=== PATIENT | female | born 1960 | race Caucasian/White ===

== ENCOUNTER 2016-07-23 21:08 | Emergency (ER) | payer BC ==
[2016-07-23 21:15] VITALS: BP 121/73; PULSE 75; RESP 16; TEMP 99.9
--- NOTE | 2016-07-23 21:53 | ED ---
General Adult HPI - General Chief complaint: Extremity Injury, Lower Stated complaint: Left Ankle Injury Time Seen by Provider: 07/23/16 21:45 Source: patient, RN notes reviewed Mode of arrival: wheelchair Limitations: no limitations - History of Present Illness Initial comments: This is a 54-year-old female who presents with left ankle pain after rolling it on uneven floor around 3 PM today. Patient states she was walking on it after this happened for about 2 hours but noticed increasing pain and swelling around 7 PM tonight. Patient denies any numbness/tingling or weakness. Patient is not on any blood thinners. Patient's past medical history significant for osteoporosis and takes Fosamax for this. Patient denies any recent fever, chills, shortness breath, chest pain, abdominal pain, nausea/vomiting/diarrhea, back pain, hematuria, headache, or visual changes, or any other complaints. - Related Data Home Medications Medication Instructions Recorded Confirmed Alendronate Sodium [Fosamax] 40 mg PO WEEKLY 07/23/16 07/23/16 Allergies Allergy/AdvReac Type Severity Reaction Status Date / Time No Known Allergies Allergy Verified 07/23/16 21:15 Review of Systems ROS Statement: Those systems with pertinent positive or pertinent negative responses have been documented in the HPI. ROS Other: All systems not noted in ROS Statement are negative. Past Medical History Additional Past Medical History / Comment(s): CHRONIC CONSTIPATION History of Any Multi-Drug Resistant Organisms: None Reported Past Surgical History: Hysterectomy, Tonsillectomy Additional Past Surgical History / Comment(s): BLADDER SUSP,LAP LUISA FUNDOPLASTY Past Anesthesia/Blood Transfusion Reactions: Motion Sickness Additional Past Anesthesia/Blood Transfusion Reaction / Comment(s): VERTIGO Past Psychological History: No Psychological Hx Reported Smoking Status: Never smoker Past Alcohol Use History: Occasional Past Drug Use History: None Reported - Past Family History Mother Additional Family Medical History / Comment(s): PLATELET DISORDER General Exam - General Exam Comments Initial Comments: General: The patient is awake and alert, in no distress, and does not appear acutely ill. Neck: The neck is supple, there is no tenderness or JVD. Cardiovascular: There is a regular rate and rhythm. No murmur, rub or gallop is appreciated. Respiratory: Lungs are clear to auscultation, respirations are non-labored, breath sounds are equal. No wheezes, stridor, rales, or rhonchi. Musculoskeletal: Patient has tenderness over the medial malleolus of the left ankle and to the anterior portion of the left foot. There is mild swelling to the lateral malleolus with localized swelling to this area. Limited range of motion due to pain, strength 5/5 and Sensation intact. Posterior tibial and dorsalis pedis pulses are 2+ bilaterally. Capillary refill is normal at less than 2 seconds. Neurological: A&O x 3. CN II-XII intact, There are no obvious motor or sensory deficits. Coordination appears grossly intact. Speech is normal. Skin: Skin is warm and dry and no rashes or lesions are noted. Psychiatric: Normal mood and affect. Limitations: no limitations Course Vital Signs 07/23/16 21:11 Temperature 99.9 F H Pulse Rate 75 Respiratory 16 Rate Blood Pressure 121/73 O2 Sat by Pulse 98 Oximetry Medical Decision Making - Medical Decision Making This is a 55-year-old female with left ankle pain. On physical exam Patient has tenderness over the medial malleolus of the left ankle and to the anterior portion of the left foot. There is mild swelling to the lateral malleolus with localized swelling to this area. Limited range of motion due to pain, strength 5/5 and Sensation intact. Posterior tibial and dorsalis pedis pulses are 2+ bilaterally. Capillary refill is normal at less than 2 seconds. X-rays of left foot and left ankle were done and reviewed showing: X-ray left ankle: Normal left ankle. X-ray left foot: Normal left foot. Reports read by Dr. Garber. Discussed results with patient. Discussed ankle sprains. I discussed rest, ice, elevate and use Giuseppe wrap for compression. Discussed crutches as needed. Discussed that patient will be given a prescription for an air cast to use while walking. Discussed [id number] Tylenol or Motrin as needed for any pain. Follow up with orthopedics if pain is not improved in 7 days. I discussed If symptoms do not improve in the next 7 days repeat x-rays may be needed to rule out occult fracture. Discussed return parameters.Discussed that patient should follow up with PCP in one to 2 days or return to the [facility] for any worsening symptoms or for any further concerns. Patient was receptive to this plan and patient will be discharged home. Disposition Clinical Impression: Left ankle sprain Disposition: HOME SELF-CARE Condition: Good Instructions: Ankle Sprain (ED) Additional Instructions: Please rest, ice, elevate and use Giuseppe wrap and Aircast for support. Please use crutches if needed for ambulation. Please perform range of motion exercises periodically throughout the day. Please [id number] Tylenol or Motrin as needed for any pain. If symptoms do not improve in the next 7 days repeat x- rays may be needed to rule out occult fracture. Please follow-up with orthopedics if pain is not improved after 7 days, otherwise follow-up with her primary care physician in one to 2 days or return to the [facility] for any worsening symptoms or for any further concerns. Referrals: Cale Otero MD [Primary Care Provider] - 1-2 days Ayo Urias DO [Doctor of Osteopathic Medicine] - 1-2 days Time of Disposition: 22:19
[2016-07-23] MEDS ORDERED: IBUPROFEN 400 MG TAB PO STA (22:09)
--- NOTE | 2016-07-23 22:13 | XR ---
EXAMINATION TYPE: XR foot complete LT DATE OF EXAM: 07/23/2016 10:01 PM COMPARISON: NONE HISTORY: Pain and injury TECHNIQUE: 3 views FINDINGS: Metatarsals appear intact. I see no fracture nor dislocation. Joint spaces are normal. IMPRESSION: Normal left foot
--- NOTE | 2016-07-23 22:14 | XR ---
EXAMINATION TYPE: XR ankle complete LT DATE OF EXAM: 07/23/2016 10:01 PM COMPARISON: NONE HISTORY: Pain TECHNIQUE: 3 views FINDINGS: Ankle mortise is anatomic. I see no fracture nor dislocation. Joint spaces are normal. IMPRESSION: Normal left ankle
== END 2016-07-23 22:20 | disposition home or self-care (01) ==
LOC: EC 21:08
DX: S93.402A Sprain of unspecified ligament of left ankle, initial encounter (principal); Z79.899 Other long term (current) drug therapy; X50.1XXA Overexertion from prolonged static or awkward postures, initial encounter
CPT/HCPCS: 99283; 73610; 73630; L4350

== ENCOUNTER → 2016-09-02 | Outpatient (CLI) | payer BC ==
--- NOTE | 2016-09-05 09:57 | MM ---
Reason for exam: screening (asymptomatic). Last mammogram was performed 1 year and 4 months ago. History: Patient is postmenopausal. Family history of breast cancer in sister at age 46. Took hormonal contraceptives for 4 years. Physical Findings: A clinical breast exam by your physician is recommended on an annual basis and results should be correlated with mammographic findings. MG 3D Screening Mammo W/Cad Bilateral CC and MLO view(s) were taken. Prior study comparison: May 15, 2015, bilateral MG 3d screening mammo w/cad. February 17, 2014, bilateral MG screening mammo w CAD. The breast tissue is heterogeneously dense. This may lower the sensitivity of mammography. There is no discrete abnormality. No significant changes when compared with prior studies. ASSESSMENT: Negative, BI-RAD 1 RECOMMENDATION: Routine screening mammogram of both breasts in 1 year.
== END ==
LOC: RADMAMWWP 15:09
PROVIDERS: ATTEND Obstetrics & Gynecology
DX: Z12.31 Encounter for screening mammogram for malignant neoplasm of breast (principal)
CPT/HCPCS: 77063; G0202

== ENCOUNTER → 2016-09-20 | Outpatient (CLI) | payer BC ==
--- NOTE | 2016-09-20 16:33 | CT ---
EXAMINATION TYPE: CT brain wo/w con DATE OF EXAM: 09/20/2016 4:26 PM COMPARISON: 04/20/2012 HISTORY: Pt states of vertigo and chronic sinusitis x [address] DLP: 1818.8 mGycm Contrast:injected with 100ml of omni 300 Unenhanced followed by contrast enhanced CT of the brain was performed. The ventricles, basal cisterns and sulci overlying the cerebral convexities demonstrate mild enlargem ent. There is no evidence for intracranial hemorrhage or sulcal effacement. There is decreased attenuation about the periventricular white matter and deep white matter of both c erebral hemispheres, compatible with chronic small vessel ischemia. Differential diagnosis does inclu de demyelination. No mass effects are seen.No midline shift. Osseous calvarium is intact. Following contrast administration no evidence for pathologic enhancement. If symptoms persist consider MRI. IMPRESSION: 1. Age related atrophic and chronic small vessel ischemic change without acute intracranial process s een at this time.
== END | disposition home or self-care (01) ==
LOC: RADCTMAIN 16:04
PROVIDERS: ATTEND Otolaryngology
DX: G31.1 Senile degeneration of brain, not elsewhere classified (principal); I67.82 Cerebral ischemia; J32.9 Chronic sinusitis, unspecified
CPT/HCPCS: 70470; Q9967

== ENCOUNTER → 2016-10-11 | Outpatient (CLI) | payer BC ==
--- NOTE | 2016-10-11 18:48 | MR ---
EXAMINATION TYPE: MR brain wo/w con DATE OF EXAM: 10/11/2016 6:35 PM COMPARISON: CT brain September 20, 2016 HISTORY: R/O MS Dizziness and white matter changes per order. TECHNIQUE: Multiplanar, multisequence images of the brain and brainstem is performed without and with IV contras t, utilizing 11 mL intravenous MultiHance gadolinium contrast is administered intravenously. Demyeli nating disease protocol with additional Sagittal Flair sequence performed. FINDINGS: T2 Lesions Present : None Approximate Number of Lesions: N/A Locations Identified : N/A Size of Reference Lesion(s): N/A Enhancing Lesion(s) Present: N/A Diffusion weighted images demonstrate no evidence of a recent infarct or other diffusion abnormality. There is no worrisome extra-axial fluid collection. The ventricular system and cisternal spaces ar e normal in size and appearance. The brain volume is age appropriate. Midline structures demonstrate normal morphology. The craniocervical junction appears within normal limits. Post contrast images demonstrate no abnormal enhancement. The dural venous sinuses appear pa tent. The visualized sinuses are clear and the globes are intact. No suspicious fluid signal mastoid air cells is present bilaterally. IMPRESSION: No significant white matter changes. Unremarkable study.
== END | disposition home or self-care (01) ==
LOC: RADMRIMAIN 17:37
PROVIDERS: ATTEND Otolaryngology
DX: R90.82 White matter disease, unspecified (principal); R42 Dizziness and giddiness; R51 Headache; R93.0 Abnormal findings on diagnostic imaging of skull and head, not elsewhere classified
CPT/HCPCS: 70553; A9577

== ENCOUNTER → 2018-02-01 | Outpatient (CLI) | payer BC ==
--- NOTE | 2018-02-01 11:59 | BD ---
EXAMINATION TYPE: Axial Bone Density DATE OF EXAM: 02/01/2018 COMPARISON: NONE CLINICAL HISTORY: Height: 5 FT 6 IN Weight: 135 FRAX RISK QUESTIONS: Family History (Parent hip fracture): YES RISK FACTORS HISTORY OF: Active: YES Postmenopausal woman: TOTAL HYST AGE 53 MEDICATIONS: Additional Medications: NONE Additional History: FX LT ELBOW SPRING 2017 EXAM MEASUREMENTS: Bone mineral densitometry was performed using the [employer] System. Bone mineral density as measured about the Lumbar spine is: ----- L1-L4(G/cm2): 0.857 T Score Values are as follows: ----- L2: -2.8 ----- L3: -2.5 ----- L4: -3.2 ----- L1-L4: -2.7 Bone mineral density has: INCREASED 4.6 % since study of: 2014 Bone mineral density about the R hip (g/cm2): 0.811 Bone mineral density about the L hip (g/cm2): 0.766 T Score values are as follows: -----R Neck: -1.6 -----L Neck: -2.0 -----R Total: -1.1 -----L Total: -1.1 Bone mineral density has: INCREASED 0.9 % since study of: 2014 IMPRESSION: Osteoporosis (T Score less than -2.5). There is increased fracture risk and therapy is usually indicated based on age. Re-Screen 1-2 years. NOTE: T-SCORE=SD OF THE YOUNG ADULT MEAN.
--- NOTE | 2018-02-05 10:32 | MM ---
Reason for exam: screening (asymptomatic). Last mammogram was performed 1 year and 5 months ago. History: Patient is postmenopausal. Family history of breast cancer in sister at age 46. Took hormonal contraceptives for 4 years. Physical Findings: A clinical breast exam by your physician is recommended on an annual basis and results should be correlated with mammographic findings. MG 3D Screening Mammo W/Cad Bilateral CC and MLO view(s) were taken. Prior study comparison: September 02, 2016, bilateral MG 3d screening mammo w/cad. May 15, 2015, bilateral MG 3d screening mammo w/cad. The breast tissue is heterogeneously dense. This may lower the sensitivity of mammography. There is no discrete abnormality. ASSESSMENT: Negative, BI-RAD 1 RECOMMENDATION: Routine screening mammogram of both breasts in 1 year.
== END | disposition home or self-care (01) ==
LOC: RADMAMWWP 08:21
PROVIDERS: ATTEND Family Medicine
DX: Z12.31 Encounter for screening mammogram for malignant neoplasm of breast (principal); M81.0 Age-related osteoporosis without current pathological fracture
CPT/HCPCS: 77063; 77067; 77080

== ENCOUNTER → 2019-04-17 | Outpatient (CLI) | payer BC ==
--- NOTE | 2019-04-19 09:38 | MM ---
Reason for exam: screening (asymptomatic). Last mammogram was performed 1 year and 2 months ago. History: Patient is postmenopausal. Family history of breast cancer in sister at age 46. Took hormonal contraceptives for 4 years. Physical Findings: A clinical breast exam by your physician is recommended on an annual basis and results should be correlated with mammographic findings. MG 3D Screening Mammo W/Cad Bilateral CC and MLO view(s) were taken. Prior study comparison: February 01, 2018, bilateral MG 3d screening mammo w/cad. September 02, 2016, bilateral MG 3d screening mammo w/cad. There are scattered fibroglandular densities. There is no discrete abnormality. ASSESSMENT: Negative, BI-RAD 1 RECOMMENDATION: Routine screening mammogram of both breasts in 1 year.
== END | disposition home or self-care (01) ==
LOC: RADMAMWWP 15:17
PROVIDERS: ATTEND Family Medicine
DX: Z12.31 Encounter for screening mammogram for malignant neoplasm of breast (principal); Z80.3 Family history of malignant neoplasm of breast
CPT/HCPCS: 77063; 77067

== ENCOUNTER 2019-05-21 07:49 | Observation (INO) | payer BC ==
--- NOTE | 2019-05-21 08:16 | ED ---
Chest Pain HPI - General Chief Complaint: Chest Pain Stated Complaint: chest pain Time Seen by Provider: 05/21/19 07:55 Source: patient Mode of arrival: wheelchair Limitations: no limitations - History of Present Illness Initial Comments: The patient is a 58 old female with past medical history of bradycardia who presents to the emergency room with reported chest pain. She states the pain started last night. It is located over the left side of her chest without radiation. Denies any jaw, left arm or back pain. Pain is intermittent. Described as a pressure sensation with intermittent sharp shooting pains. No associated shortness of breath. Denies nausea or vomiting. No diaphoresis. Denies ripping or tearing sensation to her back. She denies a cough or hemoptysis. No fevers or chills. Does admit to nasal congestion. Denies ear pain or sore throat. Admits to a family history of DVT/PE in her father and DVT in her cousins. Denies any calf pain or swelling. No pedal edema. No recent travel or prolonged immobility. No exogenous hormone use. She denies additional cardiac history to include coronary artery disease or cardiac in fections. No history of intravenous drug use. She did see Dr. Rodriguez approximately 5 years ago for bradycardia. She does not take any medications. States she had stress testing at that time which was negative. Upon arrival the patient is noted to be febrile. Denies possibility of any additional infections. No rashes. Denies any changes in her bowel or bladder habits. There are no other alleviating, precipitating or modifying factors - Related Data Home Medications Medication Instructions Recorded Confirmed Aspirin EC [Ecotrin] 325 mg PO DAILY PRN 05/21/19 05/21/19 Calcium Carbonate [Calcium] 600 mg PO DAILY 05/21/19 05/21/19 Allergies Allergy/AdvReac Type Severity Reaction Status Date / Time No Known Allergies Allergy Verified 05/21/19 09:58 Review of Systems ROS Statement: Those systems with pertinent positive or pertinent negative responses have been documented in the HPI. ROS Other: All systems not noted in ROS Statement are negative. EKG Findings - EKG Comments: EKG Findings:: EKG demonstrates a sinus bradycardia cardio with a ventricular rate of 59. CT interval 156. QRS 80. QTC 417. There are no acute ST segment elevations or depressions concerning for ischemic changes. Past Medical History Additional Past Medical History / Comment(s): CHRONIC CONSTIPATION History of Any Multi-Drug Resistant Organisms: None Reported Past Surgical History: Hysterectomy, Tonsillectomy Additional Past Surgical History / Comment(s): BLADDER SUSP,LAP LUISA FUNDOPLASTY Past Anesthesia/Blood Transfusion Reactions: Motion Sickness Additional Past Anesthesia/Blood Transfusion Reaction / Comment(s): VERTIGO Past Psychological History: No Psychological Hx Reported Smoking Status: Never smoker Past Alcohol Use History: None Reported, Occasional Past Drug Use History: None Reported - Past Family History Mother Additional Family Medical History / Comment(s): PLATELET DISORDER Father Family Medical History: Coronary Artery Disease (CAD), Myocardial Infarction ([place]), Pulmonary Embolus Additional Family Medical History / Comment(s): [place] in early 70s. General Exam Limitations: no limitations General appearance: alert, in no apparent distress Head exam: Present: atraumatic, normocephalic, normal inspection Eye exam: Present: normal appearance, PERRL, EOMI. Absent: scleral icterus, conjunctival injection, periorbital swelling ENT exam: Present: normal exam, mucous membranes moist Neck exam: Present: normal inspection. Absent: tenderness, meningismus, lymphadenopathy Respiratory exam: Present: normal lung sounds bilaterally. Absent: respiratory distress, wheezes, rales, rhonchi, stridor Cardiovascular Exam: Present: regular rate, normal rhythm, normal heart sounds. Absent: systolic murmur, diastolic murmur, rubs, gallop, clicks GI/Abdominal exam: Present: soft, normal bowel sounds. Absent: distended, tenderness, guarding, rebound, rigid Extremities exam: Present: normal inspection, full ROM, normal capillary refill. Absent: tenderness, pedal edema, joint swelling, calf tenderness Back exam: Present: normal inspection Neurological exam: Present: alert, oriented X3, CN II-XII intact Psychiatric exam: Present: normal affect, normal mood Skin exam: Present: warm, dry, intact, normal color. Absent: rash Course Vital Signs 05/21/19 05/21/19 05/21/19 07:58 08:26 09:00 Temperature 100.6 F H 99.5 F Pulse Rate 72 56 L Respiratory 18 16 Rate Blood Pressure 107/66 124/50 O2 Sat by Pulse 98 96 Oximetry 05/21/19 05/21/19 05/21/19 09:30 10:00 10:30 Temperature Pulse Rate 55 L 55 L 57 L Respiratory 18 18 18 Rate Blood Pressure 109/77 110/80 116/78 O2 Sat by Pulse 97 99 98 Oximetry 05/21/19 12:37 Temperature Pulse Rate 61 Respiratory 17 Rate Blood Pressure 107/65 O2 Sat by Pulse 97 Oximetry Chest Pain MDM - MDM Upon arrival the patient was placed into room 7. A thorough history and physical exam was performed. 12-lead EKG demonstrated no acute findings. CBC and CMP are unremarkable. Coags are normal. D-dimer is 0.3. Influenza A and B are negative. chest x-ray demonstrates no acute intrathoracic process. I did discuss the diagnosis, differential treatment options. The patients temperature was re-evaluated and was normal without intervention. I did recommend hospitalization to continue to trend the patient's troponins and have a cardio evaluation. I called and discussed the case with Dr. Srivastava who accepted admission. The patient is currently awaiting a bed on the floor Disposition Clinical Impression: Chest pain Disposition: ADMITTED IP TO THIS HOSP Condition: Stable Is patient prescribed a controlled substance at d/c from ED?: No Decision to Admit Reason: Admit from [facility] Decision Date: 05/21/19 Decision Time: 10:24
[2019-05-21 08:59] LABS: Basophils % (A) 1 %; Eosinophils # (A) 0.1 k/uL (0-0.7); Eosinophils % (A) 3 %; HCT 39.8 % (34.0-46.0); HGB 13.6 gm/dL (11.4-16.0); Lymphocytes # (A) 1.3 k/uL (1.0-4.8); Lymphocytes % (A) 32 %; MCH 32.3 pg (25.0-35.0); MCHC 34.1 g/dL (31.0-37.0); MCV 94.7 fL (80.0-100.0); Mean Platelet Volume 7.5; Monocytes # (A) 0.3 k/uL (0-1.0); Monocytes % (A) 7 %; Neutrophils # (A) 2.2 k/uL (1.3-7.7); Neutrophils % (A) 56 %; Platelet Count 272 k/uL (150-450); RDW 11.9 % (11.5-15.5)
--- NOTE | 2019-05-21 09:03 | XR ---
EXAMINATION TYPE: XR chest 2V DATE OF EXAM: 05/21/2019 COMPARISON: Prior chest x-ray 01/15/2012 HISTORY: Chest pain TECHNIQUE: Frontal and lateral views of the chest are obtained. FINDINGS: There is no focal air space opacity, pleural effusion, or pneumothorax seen. The cardiac silhouette size is within normal limits. The osseous structures are intact, there is a slight spina l curvature, and there are overlying cardiac leads. IMPRESSION: No acute cardiopulmonary process.
[2019-05-21 09:07] LABS: Albumin 4.1 g/dL (3.5-5.0); Calcium 9.8 mg/dL (8.4-10.2); Magnesium 1.9 mg/dL (1.6-2.3); Potassium 4.2 mmol/L (3.5-5.1); Total Bilirubin 0.7 mg/dL (0.2-1.3); Total Protein 6.9 g/dL (6.3-8.2)
[2019-05-21 09:10] LABS: D-Dimer 0.3 mg/L FEU (<0.60); INR 0.9 (<1.2); Partial Thromboplastin Time 25.4 sec (22.0-30.0); Prothrombin Time 10.1 sec (9.0-12.0)
[2019-05-21] MEDS ORDERED: NALOXONE 0.4 MG/ML 1 ML VIAL IV PRN (10:24)
[2019-05-21] MEDS ORDERED: NITROGLYCERIN OINT 1 INCH/GM PACKET TOPICAL STA (10:26)
[2019-05-21] MEDS: CALCIUM CARBONATE LIQUID 500 MG/5 ML CUP PO SCH (21:53)
[2019-05-22] MEDS: CALCIUM CARBONATE LIQUID 500 MG/5 ML CUP PO SCH (06:37)
[2019-05-22 07:58] VITALS: RESP 18
--- NOTE | 2019-05-22 10:14 | P.CRDCN ---
History of Present Illness History of present illness: HISTORY OF PRESENTING ILLNESS This is a pleasant 58-year-old female with no significant past medical history. She does not follow in the office with a curbing stonecutter for any reason. W e have been asked to see in consultation for chest pain. she states for the previous 3 weeks she has been having an intermittent sharp pain in the left precordial region. This discomfort is not exacerbated by activity or exertion. There is no radiation to the arm, back, neck or jaw. She has felt increasingly lightheaded recently and states it feels like her feet are going to give out. She also experiences significant amount of which she describes as "heartburn". She states she had a serina and fundoplication approximately [address] Tanner and her symptoms of acid reflux have been worse since having the procedure. She notices after eating an a very full sensation, a lot of belching and an intense burning in the chest. These pains are separate from the sharp pain described above. Last evening she had an episode after eating dinner that was lasting around 2-3 hours and was associated with nausea. She took Tums without relief. On admission she was noted to have a temperature of 100.6F. DIAGNOSTICS EKG reveals sinus mechanism with no acute ST or T wave abnormalities noted. Chest xray negative for an acute cardiopulmonary process. Laboratory reviewed, CBC unremarkable, d-dimer 0.3, sodium 139, potassium 4.2, creatinine 0.84, cardiac enzymes negative 3, magnesium 1.9, influenza A and B-. she takes no daily cardiac medications. REVIEW OF SYSTEMS At the time of my exam: CONSTITUTIONAL: Denies fever or chills. CARDIOVASCULAR: Denies chest pain, shortness of breath, orthopnea, PND or palpitations. RESPIRATORY: Denies cough. GASTROINTESTINAL: Denies abdominal pain, diarrhea, constipation, nausea or vomiting. MUSCULOSKELETAL: Denies myalgias. NEUROLOGIC: Denies numbness, tingling or weakness. ENDOCRINE: Denies fatigue, weight change, polydipsia or polyurina. GENITOURINARY: Denies burning, hematuria or urgency with micturation. HEMATOLOGIC: Denies history of anemia or bleeding. PHYSICAL EXAMINATION Blood pressure 85/53 heart rate 61 afebrile and maintaining oxygen saturation on room air. CONSTITUTIONAL: No apparent distress. HEENT: Head is normocephalic. Pupils are equal, round. Sclerae anicteric. Mucous membranes of the mouth are moist. No JVD. No carotid bruit. CHEST EXAMINATION: Lungs are clear to auscultation. No chest wall tenderness is noted on palpation or with deep breathing. HEART EXAMINATION: Regular rate and rhythm. S1, S2 heard. No murmurs, gallops or rub. ABDOMEN: Soft, nontender. Positive bowel sounds. EXTREMITIES: 2+ peripheral pulses, no lower extremity edema and no calf tenderness. NEUROLOGIC EXAMINATION: Patient is awake, alert and oriented x3. ASSESSMENT Chest pain, atypical for angina. An acute coronary event has been ruled out. Epigastric pain after eating with associated nausea Febrile illness History of hiatal hernia s/p serina fundoplication PLAN An acute coronary event has been ruled out. Symptoms are atypical for angina and clinically seem related to underlying GI etiology. Obtain 2D echocardiogram and doppler study to assess cardiac structure and function. Obtain ultrasound of the gallbladder. Suggest GI evaluation by either Dr. Tanner or gastroenterology. Given the fever of unknown origin, we will not purse stress testing at this time. Thank you kindly for this consultation. Nurse Practitioner note has been reviewed, I agree with a documented findings and plan of care. Patient was seen and examined. Past Medical History Additional Past Medical History / Comment(s): CHRONIC CONSTIPATION History of Any Multi-Drug Resistant Organisms: None Reported Past Surgical History: Hysterectomy, Tonsillectomy Additional Past Surgical History / Comment(s): BLADDER SUSP,LAP LUISA FUNDOPLASTY Past Anesthesia/Blood Transfusion Reactions: Motion Sickness Additional Past Anesthesia/Blood Transfusion Reaction / Comment(s): VERTIGO Past Psychological History: No Psychological Hx Reported Smoking Status: Never smoker Past Alcohol Use History: None Reported, Occasional Past Drug Use History: None Reported - Past Family History Father Family Medical History: Coronary Artery Disease (CAD), Myocardial Infarction ([place]), Pulmonary Embolus Additional Family Medical History / Comment(s): [place] in early 70s. Mother Family Medical History: Blood Disorder Additional Family Medical History / Comment(s): PLATELET DISORDER Medications and Allergies Home Medications Medication Instructions Recorded Confirmed Type Aspirin EC [Ecotrin] 325 mg PO DAILY PRN 05/21/19 05/21/19 History Calcium Carbonate [Calcium] 600 mg PO DAILY 05/21/19 05/21/19 History Allergies Allergy/AdvReac Type Severity Reaction Status Date / Time No Known Allergies Allergy Verified 05/21/19 09:58 Physical Exam Vitals: Vital Signs Temp Pulse Pulse Resp BP BP Pulse Ox 05/22/19 04:00 98.2 F 53 L 16 107/68 98 05/22/19 03:58 70 15 05/22/19 00:00 98.0 F 70 16 101/57 97 05/21/19 23:25 68 18 05/21/19 19:40 98.3 F 68 18 125/62 95 05/21/19 19:38 61 17 05/21/19 15:41 98.7 F 61 17 103/65 99 05/21/19 12:37 61 17 107/65 97 05/21/19 10:30 57 L 18 116/78 98 05/21/19 10:00 55 L 18 110/80 99 05/21/19 09:30 55 L 18 109/77 97 05/21/19 09:00 56 L 16 124/50 96 05/21/19 08:26 99.5 F 05/21/19 07:58 100.6 F H 72 18 107/66 98 Intake and Output 05/21/19 05/22/19 05/22/19 22:59 06:59 14:59 Intake Total 0 Balance 0 Intake: Oral 0 Other: Voiding Method Toilet Toilet # Voids 1 Results 05/21/19 08:30 05/21/19 08:30 Cardiac Enzymes 05/21/19 05/21/19 05/21/19 Range/Units 08:30 08:30 14:49 AST 24 (14-36) U/L Troponin I <0.012 <0.012 (0.000-0.034) ng/mL 05/21/19 Range/Units 20:28 AST (14-36) U/L Troponin I <0.012 (0.000-0.034) ng/mL Coagulation 05/21/19 Range/Units 08:30 PT 10.1 (9.0-12.0) sec APTT 25.4 (22.0-30.0) sec CBC 05/21/19 Range/Units 08:30 WBC 4.0 (3.8-10.6) k/uL RBC 4.20 (3.80-5.40) m/uL Hgb 13.6 (11.4-16.0) gm/dL Hct 39.8 (34.0-46.0) % Plt Count 272 (150-450) k/uL Comprehensive Metabolic Panel 05/21/19 Range/Units 08:30 Sodium 139 (137-145) mmol/L Potassium 4.2 (3.5-5.1) mmol/L Chloride 107 (98-107) mmol/L Carbon Dioxide 24 (22-30) mmol/L BUN 12 (7-17) mg/dL Creatinine 0.84 (0.52-1.04) mg/dL Glucose 86 (74-99) mg/dL Calcium 9.8 (8.4-10.2) mg/dL AST 24 (14-36) U/L ALT 24 (9-52) U/L Alkaline Phosphatase 68 (38-126) U/L Total Protein 6.9 (6.3-8.2) g/dL Albumin 4.1 (3.5-5.0) g/dL Current Medications Generic Name Dose Route Start Last Admin Trade Name Freq PRN Reason Stop Dose Admin Naloxone HCl 0.2 mg 05/21/19 10:24 Narcan IV Q2M PRN Opioid Reversal Intake and Output 05/21/19 05/22/19 05/22/19 22:59 06:59 14:59 Intake Total 0 Balance 0 Intake: Oral 0 Other: Voiding Method Toilet Toilet # Voids 1 05/21/19 08:30 05/21/19 08:30
[2019-05-22 11:29] VITALS: BP 96/61; PULSE 57; TEMP 98.1
--- NOTE | 2019-05-22 11:32 | US ---
EXAMINATION TYPE: US gallbladder DATE OF EXAM: 05/22/2019 COMPARISON: NONE CLINICAL HISTORY: pain after eating, nausea. EXAM MEASUREMENTS: Liver Length: 14.2 cm Gallbladder Wall: 0.2 cm CBD: 0.2 cm Right Kidney: 9.4 x 3.8 x 4.4 cm Pancreas: wnl as visualized Liver: wnl Gallbladder: wnl Evidence for sonographic Myers's sign: No CBD: wnl Right Kidney: No hydronephrosis or masses seen IMPRESSION: No sonographic evidence of cholelithiasis nor acute cholecystitis. Unremarkable ultrasoun d.
--- NOTE | 2019-05-22 16:09 | ECHOF ---
Referral Reason:cp MEASUREMENTS -------- HEIGHT: 167.6 cm WEIGHT: 59.0 kg BP: RVIDd: 2.8 cm (< 3.3) IVSd: 1.0 cm (0.6 - 1.1) LVIDd: 2.7 cm (3.9 - 5.3) LVPWd: 1.2 cm (0.6 - 1.1) IVSs: 1.4 cm LVIDs: 1.9 cm LVPWs: 1.2 cm LAESV Index (A-L): 17.50 ml/m Ao Diam: 2.5 cm (2.0 - 3.7) AV Cusp: 2.0 cm (1.5 - 2.6) LA Diam: 2.5 cm (2.7 - 3.8) MV EXCURSION: 12.126 mm (> 18.000) MV EF SLOPE: 80 mm/s (70 - 150) EPSS: 0.4 cm MV E Tonio: 0.85 m/s MV DecT: 248 ms MV A Tonio: 0.64 m/s MV E/A Ratio: 1.32 RAP: 5.00 mmHg RVSP: 16.89 mmHg TAPSE: 25.70 mm FINDINGS -------- Resting bradycardia (HR<60bpm). This was a technically good study. The left ventricular size is normal. There is mild concentric left ventricular hypertrophy. Overa ll left ventricular systolic function is normal with, an EF between 55 - 60 %. The diastolic fillin g pattern is normal for the age of the patient 9.22. The right ventricle is normal in size. The right ventricular systolic function is normal. The left atrial size is normal. Normal LA size by volume 22+/-6 ml/m2. The right atrial size is normal. Interatrial and interventricular septum intact. Aortic valve is trileaflet and is mildly thickened. The mitral valve is normal. There is trace mitral regurgitation. The tricuspid valve appears structurally normal. Trace tricuspid regurgitation present. Right robinson tricular systolic pressure is normal at < 35 mmHg. There is no pulmonic regurgitation present. The aortic root size is normal. Normal inferior vena cava with normal inspiratory collapse consistent with estimated right atrial pre ssure of 5 mmHg. There is no pericardial effusion. CONCLUSIONS -------- 1. Resting bradycardia (HR<60bpm). 2. This was a technically good study. 3. The left ventricular size is normal. 4. There is mild concentric left ventricular hypertrophy. 5. Overall left ventricular systolic function is normal with, an EF between 55 - 60 %. 6. The diastolic filling pattern is normal for the age of the patient 9.22 7. The right ventricle is normal in size. 8. The right ventricular systolic function is normal. 9. The left atrial size is normal. 10. Normal LA size by volume 22+/-6 ml/m2. 11. The right atrial size is normal. 12. Interatrial and interventricular septum intact. 13. Aortic valve is trileaflet and is mildly thickened. 14. The mitral valve is normal. 15. There is trace mitral regurgitation. 16. The tricuspid valve appears structurally normal. 17. Trace tricuspid regurgitation present. 18. Right ventricular systolic pressure is normal at < 35 mmHg. 19. There is no pulmonic regurgitation present. 20. The aortic root size is normal. 21. Normal inferior vena cava with normal inspiratory collapse consistent with estimated right atrial pressure of 5 mmHg. 22. There is no pericardial effusion. VP SITE: Emmy Torres, [facility]
--- NOTE | 2019-05-26 23:23 | P.HPIM ---
History of Present Illness H&P Date: 05/22/19 Chief Complaint: Chest pain History of presenting complaint: This is a 58-year-old patient of Dr. Otero. Patient normally otherwise in good health. For about a couple of weeks patient has noticed that she's been having some sharp chest pain sometimes a burning sensation sometimes fullness in the epigastric. Patient's had previously Shanae fundoplasty done by Dr. Claudia raygoza. The reflux symptoms are still being present. Pain does not radiate to the neck or on. Not related to activity. No dizziness no lightheadedness. Patient also has a slight cough with questionable postnasal drip. Otherwise pretty active. Denies any cardiac history. Review of systems: GEN.: None EYES: None HEENT: None NECK: None RESPIRATORY: None CARDIOVASCULAR: As above GASTROINTESTINAL: As above GENITOURINARY: None MUSCULOSKELETAL: None LYMPHATICS: None HEMATOLOGICAL: None PSYCHIATRY: None NEUROLOGICAL: None Social history: Lives with her . Does not smoke drink alcohol. Physical examination: VITAL SIGNS: 100.6, 72, 18, 107/66, 98% room air GENERAL: 21, sitting up, comfortable. EYES: Pupils equal. Conjunctiva normal. HEENT: External appearance of nose and ears normal, oral cavity grossly normal. NECK: JVD not raised; masses not palpable. HEART: First and second heart sounds are normal; no edema. LUNGS: Respiratory rate normal; clear to auscultation. ABDOMEN: Soft, nontender, liver spleen not palpable, no masses palpable. PSYCH: Alert and oriented x3; mood and affect normal. NEUROLOGICAL: Cranial nerves grossly intact; no facial asymmetry, power and sensation grossly intact. LYMPHATICS: No lymph nodes palpable in the axilla and neck INVESTIGATIONS, reviewed in the clinical context: White count 4 hemoglobin 13.6 progression 4.2 creatinine 0.84 Troponin I 3 negative Influenza A and B both negative EKG tracing personally reviewed by me-normal sinus rhythm Chest x-ray film personally reviewed by me-lung hall clear Assessment: -This is a patient who presented with sharp pain with 1 episode a low-grade fever slight cough could be pleurisy likely viral. -GERD symptoms and patient is had a previous Shanae fundoplasty Plan: Cardiology was consulted. Serial cardiac enzymes were negative. Gallbladder ultrasound and 2-D echo was ordered by cardiology. Past Medical History Additional Past Medical History / Comment(s): CHRONIC CONSTIPATION History of Any Multi-Drug Resistant Organisms: None Reported Past Surgical History: Hysterectomy, Tonsillectomy Additional Past Surgical History / Comment(s): BLADDER SUSP,LAP LUISA FUNDOPLASTY Past Anesthesia/Blood Transfusion Reactions: Motion Sickness Additional Past Anesthesia/Blood Transfusion Reaction / Comment(s): VERTIGO Past Psychological History: No Psychological Hx Reported Smoking Status: Never smoker Past Alcohol Use History: None Reported, Occasional Past Drug Use History: None Reported - Past Family History Father Family Medical History: Coronary Artery Disease (CAD), Myocardial Infarction ([place]), Pulmonary Embolus Additional Family Medical History / Comment(s): [place] in early 70s. Mother Family Medical History: Blood Disorder Additional Family Medical History / Comment(s): PLATELET DISORDER Medications and Allergies Home Medications Medication Instructions Recorded Confirmed Type Aspirin EC [Ecotrin] 325 mg PO DAILY PRN 05/21/19 05/21/19 History Calcium Carbonate [Calcium] 600 mg PO DAILY 05/21/19 05/21/19 History Allergies Allergy/AdvReac Type Severity Reaction Status Date / Time No Known Allergies Allergy Verified 05/21/19 09:58 Physical Exam Vitals: Vital Signs Temp Pulse Pulse Resp BP BP Pulse Ox 05/22/19 07:57 98.6 F 61 18 85/53 98 05/22/19 04:00 98.2 F 53 L 16 107/68 98 05/22/19 03:58 70 15 05/22/19 00:00 98.0 F 70 16 101/57 97 05/21/19 23:25 68 18 05/21/19 19:40 98.3 F 68 18 125/62 95 05/21/19 19:38 61 17 05/21/19 15:41 98.7 F 61 17 103/65 99 05/21/19 12:37 61 17 107/65 97 05/21/19 10:30 57 L 18 116/78 98 05/21/19 10:00 55 L 18 110/80 99 Intake and Output 05/21/19 05/22/19 05/22/19 22:59 06:59 14:59 Intake Total 0 Balance 0 Intake: Oral 0 Other: Voiding Method Toilet Toilet Toilet # Voids 1 Results CBC & Chem 7: 05/21/19 08:30 05/21/19 08:30 Thrombosis Risk Factor Assmnt - Choose All That Apply Any of the Below Risk Factors Present?: Yes Each Factor Represents 1 point: Age 41-60 years Other Risk Factors: Yes Each Risk Factor Represents 3 Points: Family history of DVT/PE Other congenital or acquired thrombophilia - If yes, enter type in comment: No Thrombosis Risk Factor Assessment Total Risk Factor Score: 4 Thrombosis Risk Factor Assessment Level: Moderate Risk
--- NOTE | 2019-05-26 23:26 | P.DS ---
Providers Date of admission: 05/21/19 10:24 Expected date of discharge: 05/22/19 Attending physician: Wei Srivastava Consults: 05/21/19 10:25 Consult Physician Urgent Consulting Provider: [facility] Consult Reason/Comments: acute chest pain possible acs Do you want consulting provider notified?: Yes Primary care physician: Piero Otero [facility] Course: Chief Complaint: Chest pain Hospital course: This is a 58-year-old patient of Dr. Otero. Patient normally otherwise in good health. For about a couple of weeks patient has noticed that she's been having some sharp chest pain sometimes a burning sensation sometimes fullness in the epigastric. Patient's had previously Shanae fundoplasty done by Dr. Moya. The reflux symptoms are still being present. Pain does not radiate to the neck or on. Not related to activity. No dizziness no lightheadedness. Patient also has a slight cough with questionable postnasal drip. Otherwise pretty active. Denies any cardiac history. Patient EKG was unremarkable. Troponins were negative. Patient should follow Dr. Moya and may require antacids. Gallbladder ultrasound and 2-D echo both unremarkable. Consultation: [facility] Physical examination: VITAL SIGNS: 99.5, 55, 18, 110/80, 99% room air GENERAL: 21, sitting up, comfortable. EYES: Pupils equal. Conjunctiva normal. HEENT: External appearance of nose and ears normal, oral cavity grossly normal. NECK: JVD not raised; masses not palpable. HEART: First and second heart sounds are normal; no edema. LUNGS: Respiratory rate normal; clear to auscultation. ABDOMEN: Soft, nontender, liver spleen not palpable, no masses palpable. PSYCH: Alert and oriented x3; mood and affect normal. INVESTIGATIONS, reviewed in the clinical context: White count 4 hemoglobin 13.6 progression 4.2 creatinine 0.84 Troponin I 3 negative Influenza A and B both negative EKG tracing personally reviewed by me-normal sinus rhythm Chest x-ray film personally reviewed by me-lung hall clear Gallbladder ultrasound-negative 2-D echocardiogram unremarkable showed preserved LV function Assessment: - pleurisy likely viral. -GERD symptoms and patient is had a previous Shanae fundoplasty Disposition: Home Patient Condition at Discharge: Stable Plan - Discharge Summary Discharge Rx Participant: No New Discharge Prescriptions: Continue Calcium Carbonate [Calcium] 600 mg PO DAILY Aspirin EC [Ecotrin] 325 mg PO DAILY PRN PRN Reason: Pain Discharge Medication List Aspirin EC [Ecotrin] 325 mg PO DAILY PRN 05/21/19 [History] Calcium Carbonate [Calcium] 600 mg PO DAILY 05/21/19 [History] Follow up Appointment(s)/Referral(s): Cale Otero MD [Primary Care Provider] - 1 Week Juan A Last MD [STAFF PHYSICIAN] - 05/28/19 1:45 pm
== END 2019-05-22 15:33 ==
LOC: EC 07:49 → 1SOBS 10:24
PROVIDERS: ADMIT Hospitalist; ATTEND Hospitalist
DX: R09.1 Pleurisy (principal); R07.2 Precordial pain; R50.9 Fever, unspecified; R05 Cough; K21.9 Gastro-esophageal reflux disease without esophagitis; Z83.2 Family history of diseases of the blood and blood-forming organs and certain disorders involving the immune mechanism; Z79.82 Long term (current) use of aspirin; Z82.49 Family history of ischemic heart disease and other diseases of the circulatory system; Z90.710 Acquired absence of both cervix and uterus
CPT/HCPCS: 93005 ×2; 99285; 36415; 93306; 85379; 80053; 83605; 83690; 83735; 84484; 85025; 85610; 85730; 87502; 71046; 76705; G0378 ×2

== ENCOUNTER 2019-09-21 20:02 | Emergency (ER) | payer BC ==
[2019-09-21 20:07] VITALS: BP 126/68; PULSE 78; RESP 20; TEMP 98.6
--- NOTE | 2019-09-21 20:21 | ED ---
General Adult HPI - General Chief complaint: Extremity Injury, Lower Stated complaint: Possible broken foot Time Seen by Provider: 09/21/19 20:05 Source: patient, RN notes reviewed, old records reviewed Mode of arrival: ambulatory Limitations: no limitations - History of Present Illness Initial comments: This a 58-year-old female who presents emergency Department complaining of right foot and ankle pain. Patient states she was moving her son out of college and she twisted her foot in the process and his had significant pain and swelling since. Patient denies any proximal leg pain. Patient denies any other injury. Patient is finding it hard to weight-bear at this time. - Related Data Home Medications Medication Instructions Recorded Confirmed Aspirin EC [Ecotrin] 325 mg PO DAILY PRN 05/21/19 05/21/19 Calcium Carbonate [Calcium] 600 mg PO DAILY 05/21/19 05/21/19 Allergies Allergy/AdvReac Type Severity Reaction Status Date / Time No Known Allergies Allergy Verified 09/21/19 20:07 Review of Systems ROS Statement: Those systems with pertinent positive or pertinent negative responses have been documented in the HPI. ROS Other: All systems not noted in ROS Statement are negative. Past Medical History Additional Past Medical History / Comment(s): CHRONIC CONSTIPATION History of Any Multi-Drug Resistant Organisms: None Reported Past Surgical History: Hysterectomy, Tonsillectomy Additional Past Surgical History / Comment(s): BLADDER SUSP,LAP LUISA FUNDOPLASTY Past Anesthesia/Blood Transfusion Reactions: Motion Sickness Additional Past Anesthesia/Blood Transfusion Reaction / Comment(s): VERTIGO Past Psychological History: No Psychological Hx Reported Smoking Status: Never smoker Past Alcohol Use History: None Reported, Occasional Past Drug Use History: None Reported - Past Family History Father Family Medical History: Coronary Artery Disease (CAD), Myocardial Infarction ([place]), Pulmonary Embolus Additional Family Medical History / Comment(s): [place] in early 70s. Mother Additional Family Medical History / Comment(s): PLATELET DISORDER General Exam - General Exam Comments Initial Comments: GENERAL Patient is well-developed and well-nourished. Patient is in mild distress. EYES Patient's pupils are equal and round. Extraocular motion is intact SKIN Unremarkable NEURO The patient is alert and oriented 3 PYSCH Patient has normal interpersonal interactions. MUSCULOSKELETAL Ankle swollen both laterally and medially. Patient's foot is also swollen. Midfoot is tender to palpation as is the lateral and medial malleolus. Limitations: no limitations Course Vital Signs 09/21/19 20:03 Temperature 98.6 F Pulse Rate 78 Respiratory 20 Rate Blood Pressure 126/68 O2 Sat by Pulse 98 Oximetry Procedures - Orthopedic Splinting/Casting Injury #1 Side: right Lower Extremity Immobilizer: posterior splint Medical Decision Making - Medical Decision Making X-rays of the ankle show no acute abnormality. X-rays of the foot showing possible chip fracture of the anterior talus. I put a splint on the patient I told her to be nonweightbearing and to follow-up with orthopedic. Disposition Clinical Impression: Ankle sprain, Talus fracture Disposition: HOME SELF-CARE Instructions (If sedation given, give patient instructions): Ankle Sprain (ED), Talar Fracture in Adults (ED) Is patient prescribed a controlled substance at d/c from ED?: No Referrals: Cale Otero MD [Primary Care Provider] - 1-2 days Time of Disposition: 20:51
--- NOTE | 2019-09-21 20:37 | XR ---
EXAMINATION TYPE: XR foot complete RT, XR ankle complete RT DATE OF EXAM: 09/21/2019 CLINICAL HISTORY: pain TECHNIQUE: Frontal, lateral and oblique images of the left foot and ankle are obtained. COMPARISON: None. FINDINGS: There is moderate soft tissue swelling seen greatest laterally. There is a tiny irregular o ssific density noted adjacent to the talus which may reflect a small avulsion fracture. Ankle mortise is intact. Osseous structures of the right foot are intact. IMPRESSION: There is a tiny irregular ossific density noted adjacent to the talus which may reflect a small avuls ion fracture.
== END 2019-09-21 20:55 | disposition home or self-care (01) ==
LOC: EC 20:02
DX: S92.151A Displaced avulsion fracture (chip fracture) of right talus, initial encounter for closed fracture (principal)
CPT/HCPCS: 29515; 99284

== ENCOUNTER 2019-09-23 16:51 | Emergency (ER) | payer BC ==
[2019-09-23 17:07] VITALS: BP 129/84; PULSE 75; RESP 18; TEMP 98.2
--- NOTE | 2019-09-23 18:29 | US ---
EXAMINATION TYPE: US venous doppler duplex LE RT DATE OF EXAM: 09/23/2019 6:21 PM COMPARISON: NONE CLINICAL HISTORY: swelling, recent ankle fx. Broke right ankle 09/20/2019. Swelling right lower leg. N o hx of DVT. Patient does not take blood thinners. SIDE PERFORMED: Right TECHNIQUE: The lower extremity deep venous system is examined utilizing real time linear array sonog josesito with graded compression, doppler sonography and color-flow sonography. VESSELS IMAGED: External Iliac Vein (EIV) Common Femoral Vein Deep Femoral Vein Greater Saphenous Vein * Femoral Vein Popliteal Vein Small Saphenous Vein * Proximal Calf Veins (* superficial vessels) Right Leg: No evidence of DVT in veins imaged at this time from prox calf veins to EIV. IMPRESSION: 1. No diagnostic evidence of DVT as visualized.
--- NOTE | 2019-09-23 19:08 | ED ---
Lower Extremity Injury HPI - General Chief Complaint: Extremity Injury, Lower Stated Complaint: Rt Ankle injury/blood clot Source: patient Mode of arrival: ambulatory Limitations: no limitations - History of Present Illness Initial Comments: The patient is a 58-year-old female presents to the emergency room with reported right calf swelling. States that she was in the emergency department on Monday was diagnosed with a right ankle fracture. She was placed in a posterior splint has been using crutches. States she's been propping her leg up as much as possible. States that she noted she had calf pain today. Also noted to have some ecchymosis located over the lateral aspect. Does admit to pain with palpation of the site. Denies a history of DVT or PE. This be to her primary care physician who was concerned about the swelling and referred her to the ER for an ultrasound. She denies any new trauma. No worsening ankle swelling. No knee pain. No chest pain or shortness of breath. There are no alleviating, Perceptin or modifying factors - Related Data Home Medications Medication Instructions Recorded Confirmed RX: Aspirin EC [Ecotrin] 325 mg PO DAILY PRN 05/21/19 05/21/19 RX: Calcium Carbonate [Calcium] 600 mg PO DAILY 05/21/19 05/21/19 Allergies Allergy/AdvReac Type Severity Reaction Status Date / Time No Known Allergies Allergy Verified 09/21/19 20:07 Review of Systems ROS Statement: Those systems with pertinent positive or pertinent negative responses have been documented in the HPI. ROS Other: All systems not noted in ROS Statement are negative. Past Medical History Additional Past Medical History / Comment(s): CHRONIC CONSTIPATION History of Any Multi-Drug Resistant Organisms: None Reported Past Surgical History: Hysterectomy, Tonsillectomy Additional Past Surgical History / Comment(s): BLADDER SUSP,LAP LUISA FUNDOPLASTY Past Anesthesia/Blood Transfusion Reactions: Motion Sickness Additional Past Anesthesia/Blood Transfusion Reaction / Comment(s): VERTIGO Past Psychological History: No Psychological Hx Reported Smoking Status: Never smoker Past Alcohol Use History: None Reported, Occasional Past Drug Use History: None Reported - Past Family History Father Family Medical History: Coronary Artery Disease (CAD), Myocardial Infarction ([place]), Pulmonary Embolus Additional Family Medical History / Comment(s): [place] in early 70s. Mother Additional Family Medical History / Comment(s): PLATELET DISORDER General Exam Limitations: no limitations Course Vital Signs 09/23/19 17:04 Temperature 98.2 F Pulse Rate 75 Respiratory 18 Rate Blood Pressure 129/84 O2 Sat by Pulse 97 Oximetry Medical Decision Making - Medical Decision Making Upon arrival the patient is placed into room 11. A thorough history and physical exam is performed. An ultrasound is performed patient's right lower extremity to evaluate for DVT. Ultrasound is negative. Discuss the diagnosis, differential and treatment options with the patient. The patient has taken the splint off on her own and therefore I do resplinted the patient's. She is instructed not to intubate on it. She does have an appointment with the [facility] on Monday. He should return to the emergency room for any new or worsening symptoms. Patient was in agreement treatment plan she is discharged home in stable condition. Disposition Clinical Impression: Calf swelling, Ankle sprain, Talus fracture Disposition: HOME SELF-CARE Condition: Stable Instructions (If sedation given, give patient instructions): Ankle Fracture (ED) Additional Instructions: Please follow up with the orthopedic doctor on Monday at your scheduled appointment. Return to the emergency room for new or worse symptoms Is patient prescribed a controlled substance at d/c from ED?: No Referrals: Cale Otero MD [Primary Care Provider] - 1-2 days Sandor Sanchez MD [Medical Doctor] - 1-2 days Time of Disposition: 19:08
== END 2019-09-23 19:17 | disposition home or self-care (01) ==
LOC: EC 16:51
DX: S92.101A Unspecified fracture of right talus, initial encounter for closed fracture (principal); X58.XXXA Exposure to other specified factors, initial encounter
CPT/HCPCS: 29515; 99283

== ENCOUNTER → 2020-09-23 | Outpatient (CLI) | payer BC ==
--- NOTE | 2020-09-24 13:39 | MM ---
Reason for exam: screening (asymptomatic). Last mammogram was performed 1 year and 5 months ago. History: Patient is postmenopausal. Family history of breast cancer in sister at age 46. Took hormonal contraceptives for 4 years. Physical Findings: A clinical breast exam by your physician is recommended on an annual basis and results should be correlated with mammographic findings. MG 3D Screening Mammo W/Cad Bilateral CC and MLO view(s) were taken. Prior study comparison: April 17, 2019, bilateral MG 3d screening mammo w/cad. February 01, 2018, bilateral MG 3d screening mammo w/cad. The breast tissue is heterogeneously dense. This may lower the sensitivity of mammography. No significant changes when compared with prior studies. ASSESSMENT: Benign, BI-RAD 2 RECOMMENDATION: Routine screening mammogram of both breasts in 1 year.
== END | disposition home or self-care (01) ==
LOC: RADMAMWWP 15:03
PROVIDERS: ATTEND Family Medicine
DX: Z12.31 Encounter for screening mammogram for malignant neoplasm of breast (principal); Z80.3 Family history of malignant neoplasm of breast; Z78.0 Asymptomatic menopausal state
CPT/HCPCS: 77063; 77067

== ENCOUNTER → 2021-12-02 | Outpatient (CLI) | payer BC ==
--- NOTE | 2021-12-06 12:08 | MM ---
Reason for Exam: Screening (asymptomatic). Last mammogram was performed 1 year(s) and 2 month(s) ago. Patient History: Menarche at age 14. First Full-Term at age 27. Left ovary removed at age 53. Right ovary removed at age 53. Hysterectomy at age 53. Postmenopausal. Patient has history of breast feeding. Estrogen, starting at age 57. Patient used Hormonal Contraceptives for 4 years. Sister had breast cancer, left, age 46. Risk Values: Urmila 5 year model risk: 2.6%. NCI Lifetime model risk: 14.6%. Prior Study Comparison: 02/01/2018 Bilateral Screening Mammogram, [facility]. 04/17/2019 Bilateral Screening Mammogram, [facility]. 09/23/2020 Bilateral Screening Mammogram, [facility]. Tissue Density: The breast tissue is heterogeneously dense. This may lower the sensitivity of mammography. Findings: Analyzed By CAD. Pattern appears stable. Focal asymmetries in the upper outer aspect right breast, present previously No suspicious groups of microcalcifications, spiculated or lobular masses, architectural distortion or other secondary signs of malignancy are mammographically apparent. Overall Assessment: Benign, BI-RAD 2 Management: Screening Mammogram of both breasts in 1 year. A negative mammogram report should not preclude additional follow up of suspicious palpable abnormalities. Patient should continue monthly self breast exam. A clinical breast exam by your physician is recommended on an annual basis and results should be correlated with mammographic findings. Electronically signed and approved by: Brian García D.O. Radiologis
== END | disposition home or self-care (01) ==
LOC: RADMAMWWP 11:10
PROVIDERS: ATTEND Family Medicine
DX: Z12.31 Encounter for screening mammogram for malignant neoplasm of breast (principal); Z78.0 Asymptomatic menopausal state; Z80.3 Family history of malignant neoplasm of breast
CPT/HCPCS: 77063; 77067

== ENCOUNTER 2022-03-11 09:45 | Day surgery (SDC) | payer BC ==
[2022-03-09 14:32] VITALS: BMI 21.7
[~2022-03-11 09:45] MED LIST: LACTATED RINGERS 1,000 ML IV SCH; LIDOCAINE 1% (10MG/ML) FOR IV START INTRADERMA PRN
[2022-03-11 10:24] VITALS: TEMP 97
[2022-03-11] MEDS ORDERED: PROPOFOL 10 MG/ML 20 ML VIAL IV ONE (11:07)
--- NOTE | 2022-03-11 11:39 | P.PCN ---
Date of Procedure: 03/11/22 Procedure(s) Performed: BRIEF HISTORY: Patient is a 61-year-old pleasant white female scheduled for an elective colonoscopy as a part of screening for colorectal neoplasia. PROCEDURE PERFORMED: Colonoscopy. PREOPERATIVE DIAGNOSIS: Screening for colon cancer. IV sedation per Anesthesia. PROCEDURE: After informed consent was obtained, the patient, was brought into the endoscopy unit. IV sedation was administered by Anesthesia under continuous monitoring. Digital rectal examination was normal. Initially the Olympus CF-160 flexible video colonoscope was then inserted in the rectum, gradually advanced into the hepatic flexure and despite multiple attempts I was not able to advance the scope any further into the cecum. Colon was extremely redundant. We applied abdominal pressure and changed patient's position despite which the scope ascendin could not be advanced further. At this time the scope was gently withdrawn. The visualized portions of the hepatic flexure transverse colon, descending colon, sigmoid colon, and rectum appeared normal. Retroflexion was performed in the rectum and no lesions were seen. The patient tolerated the procedure well. IMPRESSION: Normal-appearing colon from rectum to hepatic flexure with no evidence of colitis or colorectal neoplasia RECOMMENDATIONS: Findings of this examination were discussed with the patient as well as a family. Recommended a CT colonoscopy in 5 years..
[2022-03-11 11:58] VITALS: RESP 16
[2022-03-11 12:14] VITALS: BP 118/76; PULSE 60
== END 2022-03-11 12:31 | disposition home or self-care (01) ==
LOC: ORWHC2ENDO 09:45
PROVIDERS: ATTEND Internal Medicine Gastroenterology
DX: Z12.11 Encounter for screening for malignant neoplasm of colon (principal); Z53.8 Procedure and treatment not carried out for other reasons; Z79.899 Other long term (current) drug therapy
CPT/HCPCS: 45378; J2704

== ENCOUNTER → 2022-12-20 | Outpatient (CLI) | payer BC ==
--- NOTE | 2022-12-21 14:06 | MM ---
Reason for Exam: Screening (asymptomatic). Last mammogram was performed 1 year(s) and 1 month(s) ago. Patient History: Menarche at age 14. First Full-Term at age 27. Left ovary removed at age 53. Right ovary removed at age 53. Hysterectomy at age 53. Postmenopausal. Patient has history of breast feeding. Estrogen, starting at age 57. Patient used Hormonal Contraceptives for 4 years. Sister had breast cancer, left, age 46. Risk Values: Urmila 5 year model risk: 2.7%. NCI Lifetime model risk: 14.2%. Prior Study Comparison: 04/17/2019 Bilateral Screening Mammogram, [facility]. 09/23/2020 Bilateral Screening Mammogram, [facility]. 12/02/2021 Bilateral MG 3D screening mammo w/cad, [facility]. Tissue Density: There are scattered fibroglandular densities. Findings: Analyzed By CAD. Pattern is symmetrical and stable. No significant interval change. No suspicious groups of microcalcifications, spiculated or lobular masses, architectural distortion or other secondary signs of malignancy are mammographically apparent. Overall Assessment: Negative, BI-RAD 1 Management: Screening Mammogram of both breasts in 1 year. A negative mammogram report should not preclude additional follow up of suspicious palpable abnormalities. Patient should continue monthly self breast exam. A clinical breast exam by your physician is recommended on an annual basis and results should be correlated with mammographic findings. Electronically signed and approved by: Brian García D.O. Radiologis
--- NOTE | 2022-12-22 07:39 | BD ---
EXAMINATION TYPE: Axial Bone Density DATE OF EXAM: 12/20/2022 CLINICAL HISTORY: 61 years old Female. ICD-10 CODE: M81.0 AGE-RELATED OSTEOPOROSIS W/O CURRENT PATHO LOGICAL FRA Height: 66 Weight: 144.5 FRAX RISK QUESTIONS: Alcohol (3 or more units per day): no Family History (Parent hip fracture): yes Glucocorticoids (More than 3mos): no (Ex: prednisone, prednisolone, methylprednisolone, dexamethasone, and hydrocortisone). History of Fracture in Adulthood: yes Secondary Osteoporosis: 1. Type 1 Diabetes: no 2. Hyperthyroidism: no 3. Menopause before 45: no 4. Malnutrition: no 5. Chronic liver disease: no Rheumatoid Arthritis: no Current Tobacco Use: no RISK FACTORS HISTORY OF: Surgery to Spine/Hip(right/left)/Wrist (right/left): no Family History of Osteoporosis: no Active: yes Diet low in dairy products/other sources of calcium: yes Postmenopausal woman: yes Take estrogen and/or progesterone medications: yes How lon years Lost more than 2 inches in height since high school: no MEDICATIONS: Additional History: EXAM MEASUREMENTS: Bone mineral densitometry was performed using the [employer] System. Bone mineral density as measured about the Lumbar spine is: ----- L1-L4(G/cm2): 0.936 T Score Values are as follows: ----- L1: -1.8 ----- L2: -2.0 ----- L3: -1.8 ----- L4: -2.5 ----- L1-L4: -2.0 Z Score Values are as follows: ----- L1: -0.5 ----- L2: -0.7 ----- L3: -0.5 ----- L4: -1.2 ----- L1-L4: -0.7 Bone mineral density has: increased 9.2 % since study of: 02.01.2018 Bone mineral density about the R hip (g/cm2): 0.905 Bone mineral density about the L hip (g/cm2): 0.899 T Score values are as follows: -----R Neck: -1.2 -----L Neck: -1.8 -----R Total: -0.8 -----L Total: -0.9 Z Score values are as follows: -----R Neck: 0.1 -----L Neck: -0.5 -----R Total: 0.2 -----L Total: 0.1 Bone mineral density has: increased 3.9 % since study of: 02.01.2018 FRAX%s: The graph provided illustrates a 26.7% chance for a major osteoporotic fx and a 1.9% chance f or the hips probability for fx in 10 years time. IMPRESSION: Osteopenia (T Score between -2.5 and -1). There is slightly increased risk of fracture and the patient may be considered for treatment. Re-Screen 2-5 years. NOTE: T-SCORE=SD OF THE YOUNG ADULT MEAN.
== END | disposition home or self-care (01) ==
LOC: RADMAMWWP 15:20
PROVIDERS: ATTEND Family Medicine
DX: Z12.31 Encounter for screening mammogram for malignant neoplasm of breast (principal); M81.0 Age-related osteoporosis without current pathological fracture; M85.89 Other specified disorders of bone density and structure, multiple sites; Z78.0 Asymptomatic menopausal state; Z80.3 Family history of malignant neoplasm of breast
CPT/HCPCS: 77063; 77067; 77080

== ENCOUNTER → 2023-12-29 | Outpatient (CLI) | payer BC ==
--- NOTE | 2023-12-31 16:14 | MM ---
Reason for Exam: Screening (asymptomatic). Last screening mammogram was performed 12 month(s) ago. Patient History: Menarche at age 14. First Full-Term at age 27. Left ovary removed at age 53. Right ovary removed at age 53. Hysterectomy at age 53. Postmenopausal. Patient has history of breast feeding. Estrogen, starting at age 57. Patient used Hormonal Contraceptives for 4 years. Sister had breast cancer, left, age 46. Risk Values: Urmila 5 year model risk: 2.9%. NCI Lifetime model risk: 13.5%. Prior Study Comparison: 09/23/2020 Bilateral Screening Mammogram, [facility]. 12/02/2021 Bilateral MG 3D screening mammo w/cad, [facility]. 12/20/2022 Bilateral MG 3D screening mammo w/cad, [facility]. Tissue Density: The breasts are heterogeneously dense, which may obscure small masses. Findings: Analyzed By CAD. The pattern is symmetrical. Pattern is stable. No suspicious groups of microcalcifications, spiculated or lobular masses, architectural distortion or other secondary signs of malignancy are mammographically apparent. Overall Assessment: Benign, BI-RAD 2 Management: Screening Mammogram of both breasts in 1 year. A negative mammogram report should not preclude additional follow up of suspicious palpable abnormalities. Patient should continue monthly self breast exam. A clinical breast exam by your physician is recommended on an annual basis and results should be correlated with mammographic findings. Note on Urmila scores and lifetime risk: 1. A Urmila score greater than 3% is considered moderate risk. If this is the case, consider specialist referral to assess eligibility for a risk reducing agent. 2. If overall lifetime risk for the development of breast cancer is 20% or higher, the patient may qualify for future screening with alternating mammogram and breast MRI. Electronically signed and approved by: Brian García D.O. Radiologis
== END | disposition home or self-care (01) ==
LOC: RADMAMWWP 08:57
PROVIDERS: ATTEND Family Medicine
DX: Z12.31 Encounter for screening mammogram for malignant neoplasm of breast (principal); R92.333 Mammographic heterogeneous density, bilateral breasts; Z78.0 Asymptomatic menopausal state; Z80.3 Family history of malignant neoplasm of breast; Z90.721 Acquired absence of ovaries, unilateral; Z92.0 Personal history of contraception
CPT/HCPCS: 77063; 77067

== ENCOUNTER 2024-03-15 22:50 | Emergency (ER) | payer BC ==
[2024-03-15 22:54] VITALS: TEMP 98
[2024-03-15 23:52] LABS: Basophils % (A) 0 %; Eosinophils # (A) 0.1 k/uL (0-0.7); Eosinophils % (A) 1 %; HCT 38.4 % (34.0-46.0); HGB 12.9 gm/dL (11.4-16.0); Lymphocytes # (A) 1.3 k/uL (1.0-4.8); Lymphocytes % (A) 14 %; MCH 32.7 pg (25.0-35.0); MCHC 33.5 g/dL (31.0-37.0); MCV 97.6 fL (80.0-100.0); Mean Platelet Volume 7.6; Monocytes # (A) 0.6 k/uL (0-1.0); Monocytes % (A) 7 %; Neutrophils # (A) 6.7 k/uL (1.3-7.7); Neutrophils % (A) 76 %; Platelet Count 266 k/uL (150-450); RBC 3.93 m/uL (3.80-5.40); RDW 11.8 % (11.5-15.5); WBC 8.9 k/uL (3.8-10.6)
--- NOTE | 2024-03-15 23:55 | ED ---
Abdominal Pain HPI - General Source: patient, RN notes reviewed Mode of arrival: ambulatory Limitations: no limitations <Roseann Leary - Last Filed: 03/16/24 05:02> <Mary Gonzalez - Last Filed: 03/18/24 02:47> - General Chief Complaint: Abdominal Pain Stated Complaint: Abd Pain Time Seen by Provider: 03/15/24 23:10 - History of Present Illness Initial Comments: 63-year-old female with no significant past medical history presenting to the ER with lower abdominal pain x 1 day. Describes a constant dull pain from the umbilicus into the lower abdomen radiating evenly on both sides and into the back. Describes the sensation that she has to have a bowel movement but cannot. She also admits intermittent lower abdominal cramping. She has never had this pain before. She does admit some mild nausea but denies vomiting, fevers, chills, urinary symptoms, constipation, diarrhea. Last bowel movement was last night and was normal. She does have a history of a hysterectomy and hiatal hernia repair, however denies any other abdominal history (Roseann Leary) - Related Data Home Medications Medication Instructions Recorded Confirmed DULoxetine HCL 20 mg PO HS 03/09/22 03/11/22 Estrogens, Conjugated [Premarin] 0.625 mg PO HS 03/09/22 03/11/22 Previous Rx's Medication Instructions Recorded Amoxic-Pot Clav 875-125Mg 1 tab PO Q12HR #20 tab 03/16/24 [Augmentin 875-125] Allergies Allergy/AdvReac Type Severity Reaction Status Date / Time No Known Allergies Allergy Verified 03/15/24 22:54 Review of Systems ROS Other: All systems not noted in ROS Statement are negative. <Roseann Leary - Last Filed: 03/16/24 05:02> ROS Other: All systems not noted in ROS Statement are negative. <Mary Gonzalez - Last Filed: 03/18/24 02:47> ROS Statement: Those systems with pertinent positive or pertinent negative responses have been documented in the HPI. Past Medical History Additional Past Medical History / Comment(s): CHRONIC CONSTIPATION History of Any Multi-Drug Resistant Organisms: None Reported Past Surgical History: Bladder Surgery, Hysterectomy, Tonsillectomy Additional Past Surgical History / Comment(s): BLADDER SUSP,LAP LUISA FUNDOP LASTY, colonoscopy Past Anesthesia/Blood Transfusion Reactions: Motion Sickness Additional Past Anesthesia/Blood Transfusion Reaction / Comment(s): VERTIGO Past Psychological History: No Psychological Hx Reported Smoking Status: Never smoker Past Alcohol Use History: Occasional Past Drug Use History: None Reported - Past Family History Father Family Medical History: Coronary Artery Disease (CAD), Myocardial Infarction (ME), Pulmonary Embolus Additional Family Medical History / Comment(s): ME in early 70s. Sister(s) Family Medical History: Cancer Additional Family Medical History / Comment(s): BREAST Mother Family Medical History: Cancer Additional Family Medical History / Comment(s): PLATELET DISORDER <Roseann Leary - Last Filed: 03/16/24 05:02> General Exam Limitations: no limitations General appearance: alert, in no apparent distress Head exam: Present: atraumatic, normocephalic, normal inspection Eye exam: Present: normal appearance, PERRL, EOMI. Absent: scleral icterus, conjunctival injection, periorbital swelling Respiratory exam: Present: normal lung sounds bilaterally. Absent: respiratory distress, wheezes, rales, rhonchi, stridor Cardiovascular Exam: Present: regular rate, normal rhythm, normal heart sounds. Absent: systolic murmur, diastolic murmur, rubs, gallop, clicks GI/Abdominal exam: Present: soft, tenderness (Diffuse lower abdominal tenderness), normal bowel sounds. Absent: distended, guarding, rebound, rigid Back exam: Absent: CVA tenderness (R), CVA tenderness (L) Neurological exam: Present: alert, oriented X3 Psychiatric exam: Present: normal affect, normal mood Skin exam: Present: warm, dry, intact, normal color. Absent: rash <Roseann Leary - Last Filed: 03/16/24 05:02> Course Vital Signs 03/15/24 03/16/24 03/16/24 22:51 00:18 00:49 Temperature 98 F Pulse Rate 77 77 76 Respiratory 18 19 19 Rate Blood Pressure 95/56 117/76 120/69 O2 Sat by Pulse 100 97 99 Oximetry 03/16/24 03/16/24 03:19 05:13 Temperature Pulse Rate 85 74 Respiratory 19 18 Rate Blood Pressure 116/68 107/68 O2 Sat by Pulse 98 96 Oximetry Medical Decision Making - Lab Data Result diagrams: 03/15/24 23:10 03/15/24 23:10 - EKG Data -: EKG Interpreted by Me <Roseann Leary - Last Filed: 03/16/24 05:02> - Lab Data Result diagrams: 03/15/24 23:10 03/15/24 23:10 <Mary Gonzalez - Last Filed: 03/18/24 02:47> - Medical Decision Making Was pt. sent in by a medical professional or institution (, PA, SHOVEL LOADER OPERATOR, urgent care, hospital, or halfway...) When possible be specific @ -No Did you speak to anyone other than the patient for history (EMS, parent, family, police, friend...)? What history was obtained from this source @ -No Did you review nursing and triage notes (agree or disagree)? Why? @ -I reviewed and agree with nursing and triage notes Were old charts reviewed (outside hosp., previous admission, EMS record, old EKG, old radiological studies, urgent care reports/EKG's, halfway records)? Report findings @ -No old charts were reviewed Differential Diagnosis (chest pain, altered mental status, abdominal pain women, abdominal pain men, vaginal bleeding, weakness, fever, dyspnea, syncope, headache, dizziness, GI bleed, back pain, seizure, CVA, palpatations, mental health, musculoskeletal)? @ -Differential Abdominal Pain Women: Appendicitis, Cholecystitis, diverticulosis, ischemic bowel, pancreatitis, hepatitis, UTI, gastroenteritis, AAA, incarcerated hernia, bowel obstruction, constipation, inflammatory bowel, hepatitis, peptic ulcer disease, splenic infarction, perforated viscus, vulvitis, ovarian torsion, PID, kidney stone, placenta abruption, this is not meant to be an all-inclusive list EKG interpreted by me (3pts min.). @ -As above X-rays interpreted by me (1pt min.). @ -None done CT interpreted by me (1pt min.). @ -CT abdomen pelvis interpreted by me reveals no acute process, pending final read U/S interpreted by me (1pt. min.). @ -None done What testing was considered but not performed or refused? (CT, X-rays, U/S, labs)? Why? @ -None What meds were considered but not given or refused? Why? @ -None Did you discuss the management of the patient with other professionals (professionals i.e. , PA, SHOVEL LOADER OPERATOR, lab, RT, psych nurse, social work specialist, lawyers, teacher, forest fire officer, case coordinator)? Give summary @ -No Was smoking cessation discussed for >3mins.? @ -No Was critical care preformed (if so, how long)? @ -No Were there social determinants of health that impacted care today? How? (Homelessness, low income, unemployed, alcoholism, drug addiction, transportation, low edu. Level, literacy, decrease access to med. care, [facility], rehab)? @ -No Was there de-escalation of care discussed even if they declined (Discuss DNR or withdrawal of care, Hospice)? DNR status @ -No What co-morbidities impacted this encounter? (DM, HTN, Smoking, COPD, CAD, Cancer, CVA, ARF, Chemo, Hep., AIDS, mental health diagnosis, sleep apnea, morbid obesity)? @ -None Was patient admitted / discharged? Hospital course, mention meds given and route, prescriptions, significant lab abnormalities, going to OR and other pertinent info. @ -Discharged. This is a 63-year-old female presenting with lower abdominal pain x 1 day. Vital signs initially remarkable for BP 95/57, however upon repeat increases to 116/68. Patient is afebrile, nontachycardic. There is mild diffuse tenderness in bilateral lower quadrants of abdomen. Patient was provided with IV fluids and analgesics. Lab work including CBC, CMP, lactic acid unremarkable. Urinalysis unremarkable. EKG reveals normal sinus rhythm no ST changes. CT abdomen/pelvis interpreted by me reveals no acute process, pending final read. Upon reevaluation, patient reports symptoms have greatly improved and feels stable for discharge. I discussed case with Dr. Gonzalez and she will notify patient of any abnormal results on CT scan final read. Supportive care and return precautions discussed with patient in detail, and patient conveys understanding agrees to plan. Undiagnosed new problem with uncertain prognosis? @ -No Drug Therapy requiring intensive monitoring for toxicity (Heparin, Nitro, Insulin, Cardizem)? @ -No Were any procedures done? @ -No Diagnosis/symptom? @ -Abdominal pain Acute, or Chronic, or Acute on Chronic? @ -Acute Uncomplicated (without systemic symptoms) or Complicated (systemic symptoms)? @ -Uncomplicated Side effects of treatment? @ -No Exacerbation, Progression, or Severe Exacerbation? @ -No Poses a threat to life or bodily function? How? (Chest pain, USA, ME, pneumonia, PE, COPD, DKA, ARF, appy, cholecystitis, CVA, Diverticulitis, Homicidal, Suicidal, threat to staff... and all critical care pts) @ -Unlikely (Sheila Learyna) CT did demonstrate colitis and therefore antibiotics were sent to the pharmacy (Mary Gonzalez) - Lab Data Lab Results 03/15/24 03/15/24 03/15/24 Range/Units 23:10 23:10 23:10 WBC 8.9 (3.8-10.6) k/uL RBC 3.93 (3.80-5.40) m/uL Hgb 12.9 (11.4-16.0) gm/dL Hct 38.4 (34.0-46.0) % MCV 97.6 (80.0-100.0) fL MCH 32.7 (25.0-35.0) pg MCHC 33.5 (31.0-37.0) g/dL RDW 11.8 (11.5-15.5) % Plt Count 266 (150-450) k/uL MPV 7.6 Neutrophils % 76 % Lymphocytes % 14 % Monocytes % 7 % Eosinophils % 1 % Basophils % 0 % Neutrophils # 6.7 (1.3-7.7) k/uL Lymphocytes # 1.3 (1.0-4.8) k/uL Monocytes # 0.6 (0-1.0) k/uL Eosinophils # 0.1 (0-0.7) k/uL Basophils # 0.0 (0-0.2) k/uL Sodium 134 L (137-145) mmol/L Potassium 3.7 (3.5-5.1) mmol/L Chloride 101 (98-107) mmol/L Carbon Dioxide 30 (22-30) mmol/L Anion Gap 3 mmol/L BUN 12 (7-17) mg/dL Creatinine 0.81 (0.52-1.04) mg/dL Est GFR (CKD-EPI)AfAm >90 (>60 ml/min/1.73 sqM) Est GFR (CKD-EPI)NonAf 79 (>60 ml/min/1.73 sqM) Glucose 97 (74-99) mg/dL Plasma Lactic Acid Yang 1.1 (0.7-2.0) mmol/L Calcium 9.2 (8.4-10.2) mg/dL Total Bilirubin 0.6 (0.2-1.3) mg/dL AST 20 (14-36) U/L ALT 13 (4-34) U/L Alkaline Phosphatase 78 (38-126) U/L Total Protein 6.2 L (6.3-8.2) g/dL Albumin 3.7 (3.5-5.0) g/dL Urine Color Urine Appearance (Clear) Urine pH (5.0-8.0) Ur Specific Willard (1.001-1.035) Urine Protein (Negative) Urine Glucose (UA) (Negative) Urine Ketones (Negative) Urine Blood (Negative) Urine Nitrite (Negative) Urine Bilirubin (Negative) Urine Urobilinogen (<2.0) mg/dL Ur Leukocyte Esterase (Negative) 03/16/24 Range/Units 00:16 WBC (3.8-10.6) k/uL RBC (3.80-5.40) m/uL Hgb (11.4-16.0) gm/dL Hct (34.0-46.0) % MCV (80.0-100.0) fL MCH (25.0-35.0) pg MCHC (31.0-37.0) g/dL RDW (11.5-15.5) % Plt Count (150-450) k/uL MPV Neutrophils % % Lymphocytes % % Monocytes % % Eosinophils % % Basophils % % Neutrophils # (1.3-7.7) k/uL Lymphocytes # (1.0-4.8) k/uL Monocytes # (0-1.0) k/uL Eosinophils # (0-0.7) k/uL Basophils # (0-0.2) k/uL Sodium (137-145) mmol/L Potassium (3.5-5.1) mmol/L Chloride (98-107) mmol/L Carbon Dioxide (22-30) mmol/L Anion Gap mmol/L BUN (7-17) mg/dL Creatinine (0.52-1.04) mg/dL Est GFR (CKD-EPI)AfAm (>60 ml/min/1.73 sqM) Est GFR (CKD-EPI)NonAf (>60 ml/min/1.73 sqM) Glucose (74-99) mg/dL Plasma Lactic Acid Yang (0.7-2.0) mmol/L Calcium (8.4-10.2) mg/dL Total Bilirubin (0.2-1.3) mg/dL AST (14-36) U/L ALT (4-34) U/L Alkaline Phosphatase (38-126) U/L Total Protein (6.3-8.2) g/dL Albumin (3.5-5.0) g/dL Urine Color Colorless Urine Appearance Clear (Clear) Urine pH 7.5 (5.0-8.0) Ur Specific Willard 1.008 (1.001-1.035) Urine Protein Negative (Negative) Urine Glucose (UA) Negative (Negative) Urine Ketones Negative (Negative) Urine Blood Negative (Negative) Urine Nitrite Negative (Negative) Urine Bilirubin Negative (Negative) Urine Urobilinogen <2.0 (<2.0) mg/dL Ur Leukocyte Esterase Negative (Negative) - EKG Data EKG Comments: Normal sinus rhythm with no ST changes. Ventricular rate 76 bpm, HI interval 161, QRS duration 86, QT/QTc 396/426 (Roseann Leary) Disposition Is patient prescribed a controlled substance at d/c from ED?: No Time of Disposition: 04:51 <Roseann Leary - Last Filed: 03/16/24 05:02> <Mary Gonzalez - Last Filed: 03/18/24 02:47> Clinical Impression: Abdominal pain Disposition: HOME SELF-CARE Condition: Stable Instructions (If sedation given, give patient instructions): Abdominal Pain (ED) Additional Instructions: Please return to the Emergency Department if symptoms worsen or any other concerns. Prescriptions: Amoxic-Pot Clav 875-125Mg [Augmentin 875-125] 1 tab PO Q12HR #20 tab Referrals: Cale Oteor MD [Primary Care Provider] - 1-2 days
[2024-03-16 00:05] LABS: ALT 13 U/L (4-34); AST 20 U/L (14-36); African American GFR (CKD) >90 (>60 ml/min/1.73 sqM); Albumin 3.7 g/dL (3.5-5.0); Alkaline Phosphatase 78 U/L (38-126); Anion Gap 3 mmol/L; Blood Urea Nitrogen 12 mg/dL (7-17); Calcium 9.2 mg/dL (8.4-10.2); Carbon Dioxide 30 mmol/L (22-30); Chloride 101 mmol/L (98-107); Glucose 97 mg/dL (74-99); Non-African American GFR(CKD) 79 (>60 ml/min/1.73 sqM); Potassium 3.7 mmol/L (3.5-5.1); Sodium 134 mmol/L (137-145); Total Bilirubin 0.6 mg/dL (0.2-1.3); Total Protein 6.2 g/dL (6.3-8.2)
[2024-03-16] MEDS: SODIUM CHLORIDE 0.9% 1,000 ML IV STA (00:19)
[2024-03-16] MEDS: KETOROLAC 15 MG/ML 1 ML VIAL IVP STA ×2 (00:21→05:14)
[2024-03-16 00:29] LABS: Appearance,Urine Clear (Clear); Bilirubin,Urine Negative (Negative); Blood,Urine Negative (Negative); Color,Urine Colorless; Glucose,Urine (UA) Negative (Negative); Ketones,Urine Negative (Negative); Leukocyte Esterase,Urine Negative (Negative); Nitrite,Urine Negative (Negative); PH, Urine 7.5 (5.0-8.0); Protein,Urine Negative (Negative); Specific Gravity,Urine 1.008 (1.001-1.035); Urobilinogen,Urine <2.0 mg/dL (<2.0)
[2024-03-16 05:14] VITALS: BP 107/68; PULSE 74; RESP 18
--- NOTE | 2024-03-16 07:30 | CT ---
EXAMINATION TYPE: CT abdomen pelvis w con DATE OF EXAM: 03/16/2024 COMPARISON: None INDICATION: lower abd pain DLP: 665.2 mGycm, Automated exposure control for dose reduction was used. CONTRAST: 100 mL of Isovue 370. Study performed without Oral Contrast TECHNIQUE: Axial images were obtained from above the diaphragm to the pubic rami in the axial plane a t 5 mm thick sections. Reconstructed images are reviewed on the computer in the coronal plane. FINDINGS: Limited CT sections are obtained the lung bases. The lung bases are clear. CT ABDOMEN: Liver: Normal Spleen: Normal Pancreas: Normal Adrenal glands: The adrenal glands are normal. Gallbladder: Normal Kidneys: No masses are evident. No hydronephrosis is present. No cysts are present. Delayed images through the kidneys are unremarkable. Aorta: Normal Inferior vena cava: Normal. CT PELVIS: There is thickened redundant distal sigmoid colon. Some adjacent inflammatory changes evident. Free f luid is adjacent. Correlate for colitis. This study is without oral contrast limiting bowel dilation. Fecal debris is descending colon and descending colon regions. Small amount of fecal retention trans verse colon. No dilated small bowel loops are evident. Appendix: Not identified. No dilated tubular structure or inflammatory changes identified. Urinary bladder: Normal. Genitourinary structures: Uterus and ovaries are not identified. Osseous structures: No suspicious lytic or sclerotic lesions. IMPRESSION: 1. Moderately long segment of distal redundant sigmoid colon with thickened wall and adjacent inflam matory change and small amount of free fluid. Correlate for colitis. [facility] Eliseo Greenberg, Workstation: [facility], 03/16/2024 7:28 AM
== END 2024-03-16 05:23 | disposition home or self-care (01) ==
LOC: EC 22:50
CPT/HCPCS: 36415; 74177; 80053; 81003; 83605; 85025; 96361; 96374; 96376; 99284